=== PATIENT | male | born 1970 | race Caucasian/White ===

== ENCOUNTER 2017-01-12 19:54 | Emergency (ER) | payer OTHER ==
[~2017-01-12] VITALS: Ht 182.9 cm; Wt 86.2 kg
[~2017-01-12 19:54] MED LIST: HYDR-971 PO; KETO10TA PO; NAPR500T3 PO; OXYC-323 PO; SILV20CR4 TP
[2017-01-12 20:15] VITALS: BP 134/83
[2017-01-12] MEDS ORDERED: HYDR-971 PO (20:43)
--- NOTE | 2017-01-12 20:43 | PHYS DOC ---
Past Medical History Past Medical History: COPD Past Surgical History: Other Additional Past Surgical Histo: vasectomy, left finger reattachment Alcohol Use: Occasionally Drug Use: Marijuana Adult General Chief Complaint Chief Complaint: UPPER EXTREMITY PAIN [facility] HPI Patient is a 46 year old male who presents with chronic left shoulder pain that radiates down arm and has been worsening over the last two weeks. States he occasionally gets numbness and tingling from the elbow to the 4th and 5th fingers which is not a new sympotm. Reports he has had several tests related to this shoulder pain including MRI, nerve testing, cortisone shots. Unable to recall name of doctor he has seen for this in the past. Denies new injury. Has taken Ibuprofen, Tylenol, Aleve, and Midol at home without relief. Review of Systems Review of Systems Constitutional: Denies fever or chills Eyes: Denies change in visual acuity, redness, or eye pain HENT: Denies nasal congestion or sore throat Respiratory: Denies cough or shortness of breath Cardiovascular: No additional information not addressed in HPI GI: Denies abdominal pain, nausea, vomiting, bloody stools or diarrhea : Denies dysuria or hematuria Musculoskeletal: Denies back pain. Left shoulder pain for years Integument: Denies rash or skin lesions [] Neurologic: Denies headache, focal weakness or sensory changes [] Endocrine: Denies polyuria or polydipsia [] Allergies Allergies Allergies Coded Allergies Type Severity Reaction Last Updated Verified No Known Drug Allergies 11/01/16 No Physical Exam Physical Exam Constitutional: Well developed, well nourished, no acute distress, non-toxic appearance. [] HENT: Normocephalic, atraumatic, bilateral external ears normal, oropharynx moist, no oral exudates, nose normal. [] Eyes: PERRLA, EOMI, conjunctiva normal, no discharge. [] Neck: Normal range of motion, no tenderness, supple, no stridor. [] Cardiovascular:Heart rate regular rhythm, no murmur [] Lungs & Thorax: Bilateral breath sounds clear to auscultation [] Abdomen: Bowel sounds normal, soft, no tenderness, no masses, no pulsatile masses. [] Skin: Warm, dry, no erythema, no rash. [] Back: No tenderness, no CVA tenderness. [] Extremities: No tenderness, no cyanosis, no clubbing, no edema. Full ROM hand and elbow, limited in shoulder due to pain. Neurologic: Alert and oriented X 3, normal motor function, normal sensory function, no focal deficits noted. Psychologic: Affect normal, judgement normal, mood normal. [] Current Patient Data Vital Signs Vital Signs Date Time Temp Pulse Resp B/P Pulse Ox O2 Delivery O2 Flow Rate FiO2 01/12/17 20:15 98.6 118 18 97 Room Air 98.6 EKG EKG [] Radiology/Procedures Radiology/Procedures [] Impressions: Left shoulder pain Course & Med Decision Making Course & Med Decision Making Pertinent Labs and Imaging studies reviewed. (See chart for details) [] Dragon Disclaimer Dragon Disclaimer This electronic medical record was generated, in whole or in part, using a voice recognition dictation system. Departure Departure Impression: Primary Impression: Shoulder pain, left Disposition: 01 HOME, SELF-CARE Condition: STABLE Referrals: MITALI BONILLA MD (PCP) JAIME BUSTAMANTE II, MD Patient Instructions: Shoulder Pain, [id number] Additional Instructions: Wear the sling for comfort until follow up with ortho doctor. Take medication as prescribed. Return if any problems or concerns. Scripts Hydrocodone/Apap 5-325 (Carroll 5-325 Tablet)1 Each Tablet1 Tab PO PRN Q6HRS PRN PAIN #20 TAB Prov:OTTO CRUZ APRN 01/12/17 OTTO CRUZ APRN Jan 12, 2017 20:43
== END 2017-01-12 20:54 | disposition home or self-care (01) ==
LOC: ER 19:54
DX: G89.29 Other chronic pain (principal); M25.512 Pain in left shoulder; R20.0 Anesthesia of skin; R20.2 Paresthesia of skin; J44.9 Chronic obstructive pulmonary disease, unspecified; F12.10 Cannabis abuse, uncomplicated; Z98.890 Other specified postprocedural states
CPT/HCPCS: 99283

== ENCOUNTER → 2017-03-22 | Outpatient (CLI) | payer OTHER ==
--- NOTE | 2017-03-22 09:13 | RAD ---
PROCEDURE MRI cervical spine without contrast. HISTORY Cervical arthritis, bilateral arm radiculopathy greater on the left TECHNIQUE Multiplanar, multi sequential non contrast MR imaging was performed of the cervical spine. COMPARISON None FINDINGS There is motion degradation, somewhat limits accurate evaluation of the neural foramina.. Cervical vertebral body stature and AP alignment are adequate. Cervical cord caliber is within normal limits without expansile signal change. There is mild prominence of the central canal of the cord such as C4 to C7-T1. The intervertebral disc spaces are overall adequate, mild disc desiccation C4-5 and C5-C6. There is small posterior annular tear C5-C6. There is no significant abnormality of the cervical medullary junction. Trace C4-5 endplate edema is likely reactive/degenerative in etiology. C2-3: Neural foramina and spinal canal are adequate. C3-C4: There is a shallow protrusion in the far right lateral recess. Spinal canal is adequate. Mild left facet and uncovertebral degenerative change results in mild narrowing of the left neural foramen, right neural foramen overall adequate. C4-5: There is mild bilateral facet hypertrophic change. Spinal canal is adequate. There is mild posterior narrowing of the neural foramina bilaterally. C5-C6: There is very minimal posterior bulge. Spinal canal is adequate. There is mild left uncovertebral degenerative change. There is mild facet hypertrophic change greater on the right. There is suspected mild to moderate left and mild right neural foramina compromise. C6-7: There is negligible disc osteophyte complex. Spinal canal is adequate. Right neural foramen is adequate. Left uncovertebral degenerative change contributes to mild to moderate narrowing of the left neural foramen. C7-T1: Neural foramina and spinal canal are adequate. IMPRESSION 1. There is no significant cervical spinal stenosis. 2. There is suspected mild to moderate narrowing of the left C5-C6 and C6-7 neural foramina in part from uncovertebral degenerative change. Accurate evaluation is somewhat limited due to motion. 3. 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 Electronically signed by: Ramón Aragon MD (March 22, 2017 09:11:45)
== END | disposition home or self-care (01) ==
LOC: MRI 07:41
PROVIDERS: ATTEND Nurse Practitioner Gerontology
DX: M46.92 Unspecified inflammatory spondylopathy, cervical region (principal)
CPT/HCPCS: 72141

== ENCOUNTER → 2017-04-29 | Outpatient (CLI) | payer OTHER ==
[~2017-04-29] MED LIST changes: +CETI10TA22 PO; +GABA-585 PO; +IOHEXOL 180 MG/ML 10 ML VIAL. ONE; +PANT40TA5 PO; +SILV20CR14 TP; -SILV20CR4 TP; +methylPREDNISolone ACETATE 40 MG/ML VIAL. ONE; +methylPREDNISolone ACETATE 80 MG/ML VIAL. ONE
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
== END | disposition home or self-care (01) ==
LOC: PNCL 10:36
PROVIDERS: ATTEND Anesthesiology
DX: M50.123 Cervical disc disorder at C6-C7 level with radiculopathy (principal); M19.90 Unspecified osteoarthritis, unspecified site; J44.9 Chronic obstructive pulmonary disease, unspecified; F17.210 Nicotine dependence, cigarettes, uncomplicated; K21.9 Gastro-esophageal reflux disease without esophagitis; F32.9 Major depressive disorder, single episode, unspecified; Z72.89 Other problems related to lifestyle
CPT/HCPCS: 62321; J1030; J1040